=== PATIENT | female | born 1965 ===

== ENCOUNTER → 2020-04-27 11:35 | Outpatient (BNVA) | payer OTHER, SELFPAY | PROVIDERS: PCP Internal Medicine; Referring Provider Internal Medicine; Visit Provider Student in an Organized Health Care Education/Training Program | DX: M17.11 Unilateral primary osteoarthritis, right knee (principal) | CPT/HCPCS: 20610; 99212 ==

== ENCOUNTER 2020-11-17 12:04 | Outpatient (REF) | payer OTHER, SELFPAY ==
[2020-11-17 14:10] LABS: Alanine Aminotransferase 47 U/L (0-31); Albumin Level 4.4 g/dL (3.5-5.0); Alkaline Phosphatase 91 U/L (39-117); Anion Gap 13 (12-20); Aspartate Amino Transferase 41 U/L (5-31); Bilirubin Total 0.4 mg/dL (0.0-1.0); Blood Urea Nitrogen 14 mg/dL (9-16); Calcium 9.6 mg/dL (8.4-10.2); Carbon Dioxide 29 mmol/L (22-29); Chloride 104 mmol/L (96-108); Estimated Glomerular Filt Rate > 60; Glucose Random 107 mg/dL (60-115); Potassium 4.6 mmol/L (3.3-5.1); Sodium 141 mmol/L (135-145); Total Protein 7.4 g/dL (6.5-8.0)
== END 2020-11-17 12:05 | disposition home or self-care (01) ==
LOC: HO.LAB 12:04
PROVIDERS: PCP Internal Medicine; Referring Provider Internal Medicine; Visit Provider Student in an Organized Health Care Education/Training Program
DX: M17.11 Unilateral primary osteoarthritis, right knee (principal); M47.816 Spondylosis without myelopathy or radiculopathy, lumbar region; Z88.6 Allergy status to analgesic agent; Z88.0 Allergy status to penicillin; Z79.899 Other long term (current) drug therapy
CPT/HCPCS: 20610; 36415; 80053; 99212

== ENCOUNTER 2020-11-23 14:33 | Outpatient (REF) | payer OTHER, SELFPAY ==
--- NOTE | ~2020-11-23 | MR_ITS ---
EXAMINATION: MR KNEE WITHOUT CONTRAST, RIGHT CLINICAL INFORMATION: Primary osteoarthritis. COMPARISON: X-ray 12/23/2019. TECHNIQUE: MRI of the knee without contrast was performed using routine sequences on a high-field scanner. FINDINGS: MENISCI: Medial Meniscus: Degenerative signal in the body. No discrete tear is seen. Lateral Meniscus: Intact LIGAMENTS: Cruciate: Intact Collateral: Intact EXTENSOR MECHANISM: Intact. Quadriceps tendon insertional enthesopathy. ARTICULAR CARTILAGE/BONE: Patellofemoral Compartment: Scattered foci mild patellar cartilage fissuring. Focal cartilage heterogeneity in the medial trochlear. Medial Compartment: Cartilage fissuring of the lateral aspect of medial femoral condyle. Mild cartilage thinning of the tibia. Lateral Compartment: Cartilage thinning and fissuring in the posterior tibia. No fracture. JOINT FLUID AND BURSAE: Trace joint fluid. Small Ambrocio's cyst. MR/MR knee RT wo con IMPRESSION: 1. No discrete meniscal tear is seen. 2. Mild tricompartment arthritis. 3. Small Ambrocio's cyst.
== END 2020-11-23 14:34 | disposition home or self-care (01) ==
LOC: HO.MRI 14:33
PROVIDERS: Visit Provider Student in an Organized Health Care Education/Training Program
DX: M17.11 Unilateral primary osteoarthritis, right knee (principal)
CPT/HCPCS: 73721

== ENCOUNTER 2021-08-18 13:11 | Outpatient (REF) | payer OTHER, SELFPAY ==
[2021-08-22 19:46] LABS: HPV mRNA E6/E7 rflx Not Detected (Not Detected)
== END 2021-08-18 13:12 | disposition home or self-care (01) ==
LOC: HO.LAB 13:11
PROVIDERS: PCP Internal Medicine; Visit Provider Advanced Practice Midwife
DX: Z01.419 Encounter for gynecological examination (general) (routine) without abnormal findings (principal); Z11.51 Encounter for screening for human papillomavirus (HPV)
CPT/HCPCS: 87624; 88142

== ENCOUNTER 2021-09-30 14:48 | Outpatient (REF) | payer OTHER, SELFPAY ==
--- NOTE | ~2021-09-30 | MM_ITS ---
EXAMINATION: MM SCREENING DIGITAL BREAST TOMOSYNTHESIS, BILATERAL CLINICAL INFORMATION: Screening. Asymptomatic. The lifetime risk of breast cancer based on the Tyrer-Cuzick Model is 12%. COMPARISON: Mammography: 05/07/2017, 02/29/2016, 10/16/2013 TECHNIQUE: Digital breast tomosynthesis is performed in both the craniocaudal and mediolateral oblique views along with computer-aided detection (CAD). Synthesized 2D images are generated from the tomosynthesis. FINDINGS: There are scattered areas of fibroglandular density (ACR BI-RADS breast composition Category b). There are no significant masses, abnormal calcifications, or other abnormalities. Parenchymal pattern is similar to prior studies. There is no developing density or architectural abnormality. The axilla and skin contours are unremarkable. No significant changes. MM/MM tomosynthesis screening BI IMPRESSION: No mammographic evidence of malignancy. ASSESSMENT: BI-RADS 1: Negative RECOMMENDATION: Routine annual mammography screening. This patient's information was entered into a reminder system with a target due date for their next mammogram.
== END 2021-09-30 14:49 | disposition home or self-care (01) ==
LOC: HO.MAMMO 14:48
PROVIDERS: PCP Internal Medicine; Visit Provider Advanced Practice Midwife
DX: Z12.31 Encounter for screening mammogram for malignant neoplasm of breast (principal)
CPT/HCPCS: 77063; 77067

== ENCOUNTER 2022-01-05 10:28 | Outpatient (REF) | payer OTHER, SELFPAY ==
[2022-01-05 10:49] LABS: MANUAL DIFF FLAG NO
[2022-01-05 11:24] LABS: Appearance Urine HAZY; Color Urine YELLOW; Glucose Urine UA NEG (NEG); Leukocyte Esterase Urine NEG (NEG); Nitrite Urine NEG (NEG); PH 5.5 (5.0-8.0); Specific Gravity - Urine >= 1.030 (1.005-1.025); Urine Blood 2+ (NEG); Urine Ketones NEG (NEG); Urine Protein NEG (NEG-TRACE)
[2022-01-05 11:24] LABS: Basophils Absolute Auto 0.1 X10*3/uL (0.0-0.2); Basophils Percent Auto 0.5 % (0-2); Eosinophils Absolute Auto 0.3 X10*3/uL (0.0-0.4); Eosinophils Percent Auto 2.6 % (0-4); Hematocrit 38.1 % (37.0-47.0); Hemoglobin 12.4 g/dl (12.0-16.0); Imm Gran Abs Auto 0.04 X10*3/uL (0.00-0.03); Imm Gran Pct Auto 0.4 % (0.0-0.4); Lymphocytes Absolute Auto 3.5 X10*3/uL (1.2-4.9); Lymphocytes Percent Auto 36.7 % (20-40); Mean Corpuscular HGB Conc 32.5 g/dl (31.0-35.0); Mean Corpuscular Hemoglobin 28.9 pg (27.0-33.0); Mean Corpuscular Volume 88.8 fL (80.0-98.0); Mean Platelet Volume 9.2 fL (9.4-12.3); Monocytes Absolute Auto 0.9 X10*3/uL (0.1-1.2); Monocytes Percent Auto 9.6 % (2-11); Neutrophils Absolute Auto 4.8 x10*3/uL (2.0-8.3); Neutrophils Percent Auto 50.2 % (45-73); Platelet Count 331 X10*3/uL (160-400); Red Blood Count 4.29 X10*6/uL (4.20-5.50); Red Cell Distribution Width 12.9 % (11.0-16.0); White Blood Count 9.6 X10*3/uL (4.8-10.8)
[2022-01-05 11:48] LABS: Creatinine Urine 160.92 mg/dL; Microalbum/Creatinine Ratio Ur 6.8 ug/mg cr
[2022-01-05 11:49] LABS: Alanine Aminotransferase 20 U/L (0-31); Alkaline Phosphatase 82 U/L (39-117); Anion Gap 11 (12-20); Aspartate Amino Transferase 18 U/L (5-31); Bilirubin Total 0.2 mg/dL (0.0-1.0); Blood Urea Nitrogen 12 mg/dL (9-16); Calcium 9.2 mg/dL (8.4-10.2); Carbon Dioxide 25 mmol/L (22-29); Chloride 107 mmol/L (96-108); Cholesterol 298 mg/dL; Estimated Glomerular Filt Rate > 60; Glucose Random 108 mg/dL (60-115); HDL Cholesterol 38 mg/dL; LDL Cholesterol Calculated 239 mg/dl; Potassium 4.3 mmol/L (3.3-5.1); Sodium 139 mmol/L (135-145); Total Protein 7.1 g/dL (6.5-8.0); Triglycerides 109 mg/dL
[2022-01-05 11:52] LABS: Estimated Average Glucose 120 mg/dL; Hemoglobin A1C 135.8368 umol/L; Hemoglobin A1c % 5.8 %
[2022-01-05 11:58] LABS: Calcium Oxalate Crystals Urine 1+ /LPF; Mucus Urine 1+ /LPF; Squamous Epithelial Cell Urine 1+ /LPF; WBC Urine 0-2 /HPF (0-4)
[2022-01-05 12:11] LABS: Free T4 (Free Thyroxine) 0.93 ng/dL (0.71-1.85); Vitamin D 25-OH Total 26.3 ng/mL (>30)
[2022-01-05 12:46] LABS: Vitamin B12 680 pg/mL (200-900)
== END 2022-01-05 10:29 | disposition home or self-care (01) ==
LOC: HO.LAB 10:28
PROVIDERS: PCP Internal Medicine; Visit Provider Internal Medicine
DX: M17.11 Unilateral primary osteoarthritis, right knee (principal); M79.7 Fibromyalgia; E11.65 Type 2 diabetes mellitus with hyperglycemia; E78.00 Pure hypercholesterolemia, unspecified
CPT/HCPCS: 36415; 80053; 80061; 81001; 82043; 82306; 82607; 82746; 83036; 84439; 84443; 85025; 99212

== ENCOUNTER → 2022-03-20 13:48 | Outpatient (BNVA) | payer OTHER, SELFPAY | PROVIDERS: PCP Internal Medicine; Visit Provider Internal Medicine Rheumatology | DX: M17.0 Bilateral primary osteoarthritis of knee (principal); M79.7 Fibromyalgia | CPT/HCPCS: 20610; 99212 ==

== ENCOUNTER 2022-06-05 08:03 | Outpatient (REF) | payer OTHER, SELFPAY ==
--- NOTE | ~2022-06-05 | XR_ITS ---
EXAMINATION: XR CHEST CLINICAL INFORMATION: Chest pain COMPARISON: Previous chest x-ray February 2016 TECHNIQUE: 2 views of the chest were obtained. FINDINGS: The cardiac and mediastinal contours are stable. There is question of atelectasis or small infiltrate in the left upper lung. The lungs are otherwise clear. There is no pleural effusion or pneumothorax. There are degenerative changes of the spine. XR/XR chest 2V IMPRESSION: Question atelectasis or small infiltrate in the left upper lung.
[2022-06-05 09:19] LABS: Alanine Aminotransferase 12 U/L (0-31); Alkaline Phosphatase 84 U/L (39-117); Anion Gap 14 (12-20); Aspartate Amino Transferase 15 U/L (5-31); Bilirubin Total 0.4 mg/dL (0.0-1.0); Blood Urea Nitrogen 11 mg/dL (9-16); Calcium 9.4 mg/dL (8.4-10.2); Carbon Dioxide 29 mmol/L (22-29); Chloride 106 mmol/L (96-108); Cholesterol 267 mg/dL; Estimated Glomerular Filt Rate > 60; Glucose Random 101 mg/dL (60-115); HDL Cholesterol 39 mg/dL; LDL Cholesterol Calculated 201 mg/dl; Potassium 5.1 mmol/L (3.3-5.1); Sodium 144 mmol/L (135-145); Triglycerides 138 mg/dL
[2022-06-05 09:32] LABS: Appearance Urine Clear; Color Urine Yellow; Glucose Urine UA Negative (Negative); Leukocyte Esterase Urine Negative (Negative); Nitrite Urine Negative (Negative); RBC Urine >20 /HPF (0-2); Specific Gravity - Urine 1.025 (1.005-1.025); UMIC TRIGGER UA YES; Urine Blood Large (3+) (Negative); Urine Ketones Negative (Negative); Urine Protein Negative (Neg-Trace); WBC Urine 0-5 /HPF (0-5)
[2022-06-05 09:33] LABS: Estimated Average Glucose 123 mg/dL; Hemoglobin A1c % 5.9 %
[2022-06-05 09:33] LABS: Bacteria Urine 2+ (None Seen); Hyaline Casts Urine 0-2 /LPF (0-2)
== END 2022-06-05 08:04 | disposition home or self-care (01) ==
LOC: HO.LAB 08:03
PROVIDERS: PCP Internal Medicine; Visit Provider Internal Medicine
DX: E11.65 Type 2 diabetes mellitus with hyperglycemia (principal); M17.11 Unilateral primary osteoarthritis, right knee; R07.9 Chest pain, unspecified; E78.00 Pure hypercholesterolemia, unspecified
CPT/HCPCS: 36415; 71046; 80053; 80061; 81001; 83036

== ENCOUNTER → 2022-06-12 09:47 | Outpatient (REF) | payer OTHER, SELFPAY ==
--- NOTE | 2022-06-12 09:49 | CA_ITS ---
Acquisition Time: 2022-06-12 10:01:08 Total Exercise Time: 00:06:35 Test Indications: ASTHMA Medications: SEE CHART Protocol: VIANCA Max HR: 157 BPM 95% of Pred: 165 BPM Max BP: 158/078 mmHG Max Work Load: 7.8 METS Exercise stress test with exercise 6 min 35 sec of Vianca protocol, achieving 95% MPHR, 7.8 METs, with mild to moderate sob, no chest discomfort, without arrythmia, with normotensive response to exercise, without EKG changes meeting criteria for ischemia. In recovery her breathing quickly improved. Test reviewed with Dr Kraft Referred By: Susana Barber Overread By: GEOVANNY TELLEZ
== END ==
LOC: HO.CARD 09:47
PROVIDERS: Visit Provider Internal Medicine
DX: R07.9 Chest pain, unspecified (principal)
CPT/HCPCS: 93017

== ENCOUNTER 2023-05-09 09:39 | Outpatient (AMB) | payer OTHER, SELFPAY ==
--- NOTE | 2023-05-09 10:26 | MHC.OFFVIS ---
Intake Vital Signs 05/09/23 10:27 Height 4 ft 11 in Weight 132 lb 4.438 oz BMI 26.7 BP 118/82 Blood Pressure Location Lt brachial Position Sitting Pulse 88 Pulse Source Pulse Oximeter Temp 97.2 F Temp Source Skin Pulse Oximetry (%) 98 Oxygen Delivery Method Room Air Intake Visit Reasons: Knee pain Intake Note: Patient presents today c/o knee pain. Would like cortisone injection on both knees. Patient would like placard form filled out. Brought to office and will drop off herself. 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 She reports that the corticosteroid injections in her knees back in February were helpful for about 3 months. She wants to consider another set of injections today. She does not recall any side effects with the previous set of injections. She thinks there has been continued pain elsewhere involving the hands, shoulders, lower back, lateral hips, and feet. She remains on Cymbalta 60 mg daily, 3 or 4 Tylenol a day, gabapentin 400 mg at night, and tizanidine 4 mg at night if needed. She thinks there has been some swelling in the hands at times. The lumbar pain tends to radiate to the buttocks, more prominently so on the left. This has been a pattern for her before. [facility] Medical History (Updated 05/09/23 @ 10:51 by Antoine Carter MD) Generalized anxiety disorder Type 2 diabetes mellitus with hyperglycemia Vitamin D deficiency Renal calculi Hypercholesterolemia Migraine GERD (gastroesophageal reflux disease) Lumbar spondylosis Hemorrhoid Surgical History Carpal tunnel syndrome on right Hx of tubal ligation H/O hemorrhoidectomy History of esophagogastroduodenoscopy (EGD) Family History Maternal Aunt History of breast cancer Father Colon cancer Heart attack Brother Colon cancer Heart attack Social History (Reviewed 05/09/23 @ 10:27 by KASSIDY Segundo Housing: Apartment Alcohol intake: never Patient Tobacco Use Status: Never used Tobacco e-Cigarette/Vaping Use: Never Used Second Hand Smoke Exposure: Yes service: No Current occupational status: unemployed Current occupational exposures/hazards: No Sexual orientation: Straight/Heterosexual Cognitive needs: No Hearing needs: No Vision needs: Yes Review of Systems Const Details: Negative for appetite change, weight change, fever, chills, malaise and fatigue Eyes Details: Negative for vision change, dry eyes,headaches and dizziness Details: Negative for dysuria, hematuria, nocturia, decreased force/flow and genital discharge Skin/Breast Details: Negative for itching, rash, hives, Raynaud's symptoms, sun sensitivity, and skin cancer Neuro Details: Negative for epilepsy, palsy, stroke, changes in speech, tingling and weakness Psych Details: Negative for anxiety, depression and stress Endo Details: Negative for polyuria and polydypsia Donal/Lymph Details: Negative for excessive bruising or bleeding. Physical Exam Vital Signs: Last Vital Signs Temp 97.2 F 05/09/23 10:27 Pulse 88 05/09/23 10:27 BP 118/82 05/09/23 10:27 Pulse Ox 98 05/09/23 10:27 Oxygen Delivery Method Room Air 05/09/23 10:27 BMI result Body Mass Index 26.7 APPEARANCE: Patient in no acute distress EYES no redness, pupils equal and reactive to light, eyelids normal. No temporal artery tenderness, redness or swelling. EXTREMITIES: No edema, no calf tenderness, normal peripheral pulses. JOINT EXAM:?? Cervical Spine:.? Full range of motion without pain; mild cervical muscle tenderness. Thoracic Spine:.? No scoliosis.? No tenderness on palpation. Lumbar Spine:.? Alignment normal.? Lumbar pain with flexion at 60 degrees.? Slight lumbar muscle tenderness. Straight leg raising on the left causes some buttock pain at about 60 degrees. Normal reflexes and strength in the legs. Chest Wall:.? No tenderness, swelling, increased warmth or erythema. Hands:.? Normal pain-free range of motion.? There is some slight tenderness at the 1st 3 MCPs and the 2nd through 4th PIP is but I do not detect any bony or soft tissue swelling in those joints.? There is some mild tenderness without swelling at the base of the thumbs.? There is slight bony enlargement at the thumb IP in both hands and the right 3rd, left 2nd, and left 5th PIP joints. Similarly there is nontender bony enlargement at the right 2nd and 5th and left 2nd DIP joints. There is no thenar atrophy or sensory loss. Wrists:.? Normal pain-free range of motion with mild dorsal tenderness but no swelling, increased warmth or erythema. Elbows:. Normal pain-free range of motion with tenderness over the lateral epicondyles.? Over the joint spaces there is no tenderness, swelling, increased warmth or erythema. Shoulders:.?? Full range of motion without pain.? Mild anterior and trapezial tenderness.? No supraclavicular or axillary adenopathy, abductor weakness, swelling, increased warmth or erythema. Hips:.? Full range of motion with mild buttock pain at the extremes of rotation.? No groin pain with motion. Hip bursa:.? Mild trochanteric tenderness. Knees:.? Right:? Mild pain at the extremes of flexion extension with some mild medial compartment tenderness.? No effusion, redness or warmth.? Left:? Mild pain with extremes of flexion or extension. This is mostly felt in the medial compartment where she has mild tenderness but no effusion, soft tissue swelling, increased warmth or erythema.? Ankles:.? Normal pain-free range of motion with mild medial and lateral tenderness but no swelling, increased warmth or erythema. Feet:.? Normal pain-free range of motion with some instep and MTP tenderness.? No areas of swelling, increased warmth or erythema. Tender points:? Mild tenderness to digital palpation at the occiput, trapezius, second rib, lateral epicondyle, knees, greater trochanter and gluteal area bilaterally. ? Office Procedures Joint Injection/Drain Joint Injection/Drain Primary Site: right knee Secondary Site: right knee Injected: 80 mg of, Kenalog, with 3 mL of and 1% plain lidocaine Coding 47915 - Large joint Procedure code (CPT) selection complete Assessment & Plan Assessment & Plan (1) Fibromyalgia: Code(s): M79.7 - Fibromyalgia (2) Osteoarthritis of knees, bilateral: Code(s): M17.0 - Bilateral primary osteoarthritis of knee Plan Overall the patient still has features in findings consistent with fibromyalgia. There are some mild changes of osteoarthritis in the hands and in the knees. She did have a benefit with corticosteroid injections in the past and apparently no side effects so another set of injections today seems reasonable. With the patient's consent the right knee was prepped with ChloraPrep and alcohol. The skin was anesthetized with 2 cc of 1% lidocaine. The knee was then injected with 40 mg of triamcinolone and 1 cc of I % lidocaine. The patient tolerated the procedure with no immediate adverse effects. With the patient's consent the left knee was prepped with ChloraPrep and alcohol. The skin was anesthetized with 2 cc of 1% lidocaine. The knee was then injected with 40 mg of triamcinolone and 1 cc of I % lidocaine. The patient tolerated the procedure with no immediate adverse effects. She could come back in 5 months to get another set of injections for the knees if she thinks they are helpful. We will continue with her other medications as above. They do not seem to be sedating. She is still having trouble walking and uses a cane so we did provide her with a form for a handicap placard. Orders: Orders AMB Joint Injection/Aspiration Today M17.0 - Bilateral primary osteoarthritis of knee Coding Level of Care Code Est Pt Level 3 (62258) Diagnoses Fibromyalgia M79.7 Osteoarthritis of knees, bilateral M17.0 CPT Codes Coding - 97435 Large joint: 62228 - Large joint ([id number])
[2023-05-09 10:27] VITALS: BP 118/82; PULSE 88; TEMP 36.2; O2SAT 98; BMI 26.7
== END 2023-05-09 11:11 | disposition home or self-care (01) ==
PROVIDERS: PCP Internal Medicine; Visit Provider Internal Medicine Rheumatology
DX: M79.7 Fibromyalgia (principal); M17.0 Bilateral primary osteoarthritis of knee
CPT/HCPCS: 20610; 99213

== ENCOUNTER → 2023-05-09 09:39 | Outpatient (BNVA) | payer OTHER, SELFPAY | PROVIDERS: PCP Internal Medicine; Visit Provider Internal Medicine Rheumatology | DX: M17.0 Bilateral primary osteoarthritis of knee (principal); M79.7 Fibromyalgia | CPT/HCPCS: 20610; 99212 ==

== ENCOUNTER 2023-10-01 17:02 | Outpatient (AMB) | payer OTHER, SELFPAY ==
--- NOTE | 2023-10-01 17:17 | A.OFFPC_ITS ---
Vital Signs 10/01/23 17:20 Height 4 ft 11 in Weight 62.596 kg BMI 27.9 BP 126/82 Blood Pressure Location Lt brachial Position Sitting Intake Visit Reasons: phy Intake Note: Patient here for a physical exam Sheet [employer] Required: No Accompanied by: Self / Same As Patient Allergies aspirin [Aspirin] Allergy (Severe, Verified 10/01/23 17:21) SWELLING/RASH, Red bumps on face, redness Penicillins Allergy (Intermediate, Verified 10/01/23 17:21) RASH Medication List - Last Reconciled 10/01/23 by Susana Barber MD albuterol sulfate 90 mcg/actuation 2 puffs inhalation Q6H PRN albuterol sulfate 2.5 mg (3 mL) inhalation Q4-6H PRN budesonide-formoterol 160-4.5 mcg/actuation (Symbicort) 2 puffs inhalation BID 30 days duloxetine (Cymbalta) 60 mg PO DAILY gabapentin 400 mg PO BEDTIME meclizine 25 mg PO BID PRN metformin 500 mg PO DAILY [Nebulizer As directed] pantoprazole 40 mg PO DAILY Tobacco use date assessed: 10/01/23 Dental Screening Dental Screen Date: 10/01/23 Did you have a dental visit in the last 12 months?: No Did you have a dental problem in the last 6 months where you did not have access to dental care?: No Was dental information given to patient?: Patient has dentist HPI phy HPI Details 58-year-old overweight female with contr olled diabetes mellitus hypercholesterolemia GERD asthma generalized anxiety disorder coming in for physical exam last seen in May 2022. Patient's mammogram is due colonoscopy done in January 2019. Patient April 2023 seen by Rheumatology for the knee pain did have an injection on the right knee patient is diagnosis of fibromyalgia also. Since patient was seen in 2021 chest pain stress test done negative results. vertigo has passed out before last time 2 months. R hearing is poor R shoulder pain and has a schedule to see rheuma 10/09/2023 . have a hard time sleeping also and asking for med .migraine med need med also [facility] Medical History (Updated 10/01/23 @ 18:10 by Susana Barber MD) Generalized anxiety disorder Type 2 diabetes mellitus with hyperglycemia Vitamin D deficiency Renal calculi Hypercholesterolemia Migraine GERD (gastroesophageal reflux disease) Lumbar spondylosis Hemorrhoid Surgical History Carpal tunnel syndrome on right Hx of tubal ligation H/O hemorrhoidectomy History of esophagogastroduodenoscopy (EGD) Family History Maternal Aunt History of breast cancer Father Colon cancer Heart attack Brother Colon cancer Heart attack Social History Housing: Apartment Alcohol intake: never Patient Tobacco Use Status: Never used Tobacco e-Cigarette/Vaping Use: Never Used Second Hand Smoke Exposure: Yes service: No Current occupational status: unemployed Current occupational exposures/hazards: No Sexual orientation: Straight/Heterosexual Cognitive needs: No Hearing needs: No Vision needs: Yes Questionnaire PHQ-9 Over the last 2 weeks, how often have you been bothered by any of the following problems? 1. Little interest or pleasure in doing things: not at all 2. Feeling down, depressed, or hopeless: several days 3. Trouble falling or staying asleep, or sleeping too much: several days 4. Feeling tired or having little energy: several days 5. Poor appetite or overeating: not at all 6. Feeling bad about yourself - or that you are a failure or have let yourself or your family down: not at all 7. Trouble concentrating on things, such as reading the newspaper or watching television: not at all 8. Moving or speaking so slowly that other people could have noticed. Or the opposite - being so fidgety or restless that you have been moving around a lot more than usual: not at all 9. Thoughts that you would be better off or of hurting yourself in some way: not at all Total score: 3 Source: Developed by Drs. Woodrow Vera, Noemi Carrera, Simba Urias and colleagues, with an educational benoit from [employer]. Thrive Questionnaire Date Thrive assessed: 10/01/23 I am a: Patient What is your living situation today?: I have a steady place to live Within the past 12 months, did the food you bought not last and you didn't have the money to get more?: Never true Within the past 12 months, did you worry whether your food would run out before you got money to buy more?: Never true Do you have trouble paying for medicines?: No Do you have trouble getting transportation to medical appointments?: No Do you have trouble paying your heating and electricity bill?: No Do you have trouble taking care of your child, family member or friend?: No Do you have trouble with day-to-day activities such as bathing, preparing meals, shopping, managing finances, etc.?: No Are you currently unemployed and looking for a job?: No Are you interested in more education?: No Please select the resources that you would like help with: None Currently or been in a relationship where the following occur: no concerns re ported THRIVE Score: 0 AUDIT C Alcohol Use Questionnaire (AUDIT-C) 1. How often do you have a drink containing alcohol?: Never Total Score: 0 JOAN-7 AMB Questionnaire JOAN-7 Date JOAN - 7 assessed: 10/01/23 Feeling nervous, anxious, or on edge: 1 = Several days Not being able to stop or control worryin = Not at all Worrying too much about different things: 0 = Not at all Trouble relaxin = Not at all Being so restless that it is hard to sit still: 0 = Not at all Becoming easily annoyed or irritable: 0 = Not at all Feeling afraid as if something awful might happen: 0 = Not at all Total JOAN-7 score (0-4 normal; 5-9 mild; 10-14 moderate; 15-21 severe): 1 Source: Developed by Drs. Woodrow Vera, Noemi Carrera, Simba Urias and colleagues, with an educational benoit from [employer]. Review of Systems Const Denies poor appetite and Denies weakness Eyes Denies no additional complaints ENT Reports Normal hearing present, Denies dizziness, Denies nasal congestion, Denies tinnitus and Denies sore throat Card Denies chest pain, Denies syncope, Denies rapid heart rate and Denies dyspnea Resp Denies cough and Denies dyspnea GI Denies change in stool character, Reports constipation, Denies diarrhea, Denies nausea and Denies vomiting Denies urinary frequency, Denies difficulty voiding and Denies dysuria Neuro Reports Normal hearing present, Denies confusion, Denies dizziness, Denies syncope and Denies weakness Psych Denies confusion Physical exam (Primary Care) Vital Signs: Last Vital Signs BP 126/82 10/01/23 17:20 BMI result Body Mass Index 27.9 Tobacco/Smoking Status: Tobacco use Status Tobacco use date assessed 10/01/23 10/01/23 17:27 Patient Tobacco Use Status Never used Tobacco 10/01/23 17:19 e-Cigarette/Vaping Use Never Used 10/01/23 17:19 PHQ-9: PHQ-9 Score PHQ-9: Total score 3 10/01/23 17:50 Thrive Assessment: Date of Thrive Assessment Date Thrive assessed 10/01/23 10/01/23 17:27 Currently or been in a relationship where the following occur: no concerns reported Const General: No confusion Orientation/consciousness: No confusion HENMT Head: Yes normocephalic Ears: external ears normal and TM's normal bilaterally Face and sinus: Yes normal facial exam Mouth: moist mucous membranes Throat: Yes tonsils normal Eyes Conjunctivae: conjunctivae normal Pupils: Equal, round and reactive pupils present and Pupil accommodation reflex normal Direct Ophthalmoscopy: normal light reflex Neck Neck: No lymphadenopathy Thyroid: Thyroid normal Chest Chest palpation & inspection: normal inspection of the chest Resp Effort & Inspection: normal respiratory effort and no audible wheezes Auscultation: clear to auscultation bilaterally, no crackles, no wheezes and lung sounds not diminished Cardio Rate: regular rate Rhythm: regular rhythm Peripheral pulses: radial pulses present and dorsalis pedis present GI Other: referral for colon test Palpation (GI): no masses Auscultation: normal bowel sounds and normoactive bowel sounds Rectal Exam - Female: deferred Skin Other: pedal pulse and pin prick N General skin exam: no rashes or lesions noted Rashes: no rashes Neuro General: No confusion Cranial nerves: Yes Equal, round and reactive pupils present and Yes Normal hearing present Cognition (Neuro): normal cognition Gait exam (Neuro): Normal gait present Motor exam (neuro): 5/5 motor strength present throughout Deep tendon reflexes (DTR's): Right brachioradialis reflex intensity grade: 2+, Left brachioradialis reflex intensity grade: 2+, Right patellar reflex intensity grade: 2+ and Left patellar reflex intensity grade: 2+ Extrem General: No edema Results AMB Hemoglobin A1c AMB Hemoglobin A1c 6.0 % Last Edit by BALBIR Cristobal on 10/01/23 17:2 7 Immunizations tetanus-diphtheria toxoids-Td 2 Lf unit-2 Lf unit/0.5 mL IM suspension Performing Provider: Susana Barber MD Performing Location: [facility] Administered by: BALBIR Cristobal on 10/01/23 18:19 Dose Route Admin Location Dispensed Lot Number Expiration Date NDC [employer] 0.5 mL IM Left Deltoid 0.5 mL [id number] 09/01/24 [address]-2 [employer] VIS Given Date VIS Provided VIS Publication Date 10/01/23 Single Vaccine 21 Eligibility Eligibility Date Funding Source Not VFC Eligible 10/01/23 State funds Results Reviewed Results Reviewed: Laboratory Last Values Hgb A1c (Clinic) 6.0 % (4.0-6.0) 10/01/23 17:17 Assessment and Plan Assessment & Plan (1) Annual physical exam: Code(s): Z00.00 - Encounter for general adult medical examination without abnormal findings (2) Type 2 diabetes mellitus with hyperglycemia: Comment: Dr. Gamino Code(s): E11.65 - Type 2 diabetes mellitus with hyperglycemia Plan: Decrease the amount of carbohydrate intake, pasta, bread, rice and potatoes are all sugar and that is aside from all the sweet stuff, remember that fruits are good but they are Sweet also. Hemoglobin A1c goal of less than 6.5. Patient on metformin 500 mg once a day (3) Hypercholesterolemia: Code(s): E78.00 - Pure hypercholesterolemia, unspecified Plan: Cholesterol LDL goal of less than 100 and triglyceride of less than 150 concern that the 2021 blood work shows an elevated LDL. Will need blood work (4) Asthma: Code(s): J45.909 - Unspecified asthma, uncomplicated Plan: Continue with inhaler as needed has Symbicort as a controller rinse mouth after using S. (5) Primary osteoarthritis of right knee: Comment: Some meniscal degenerative change seen on MRI, 2020 Code(s): M17.11 - Unilateral primary osteoarthritis, right knee Plan: 2022 had injection of the right knee. (6) GERD (gastroesophageal reflux disease): Code(s): K21.9 - Gastro-esophageal reflux disease without esophagitis Plan: Avoid the foods that causes that usually spicy foods, tomato products, juices, coffee, soda and foods that your sensitive to. After eating do not lie down, allow 3-4 hours before in lie down. And keep the head of bed above 30 degrees t o avoid the acid from going up. (7) Generalized anxiety disorder: Comment: decline counselling 10/2021 [facility] Code(s): F41.1 - Generalized anxiety disorder Plan: Continue with Cymbalta. Patient has seen Rheumatology diagnosis of fibromyalgia (8) Colon cancer screening: Code(s): Z12.11 - Encounter for screening for malignant neoplasm of colon (9) Fibromyalgia: Code(s): M79.7 - Fibromyalgia (10) Migraine: Code(s): G43.909 - Migraine, unspecified, not intractable, without status migrainosus (11) Bicipital tendinitis of right shoulder: Code(s): M75.21 - Bicipital tendinitis, right shoulder Plan: will be seeing rheumatology Orders: Orders Complete Blood Count Auto Diff Today E11.65 - Type 2 diabetes mellitus with hyperglycemia Free T4 (Free Thyroxine) Today E11.65 - Type 2 diabetes mellitus with hyperglycemia Thyroid Stimulating Hormone Today E11.65 - Type 2 diabetes mellitus with hyperglycemia Lipid Panel Today E11.65 - Type 2 diabetes mellitus with hyperglycemia, E78.00 - Pure hypercholesterolemia, unspecified Microalbumin, Random (w Creat) Today E11.65 - Type 2 diabetes mellitus with hyperglycemia Td State Immunization Today Z23 - Encounter for immunization AMB Hemoglobin A1c Today E11.65 - Type 2 diabetes mellitus with hyperglycemia Comprehensive Met. Panel Today E11.65 - Type 2 diabetes mellitus with hyperglycemia Vitamin B12 and Folate Today E11.65 - Type 2 diabetes mellitus with hyperglycemia Creatinine Urine Today E11.65 - Type 2 diabetes mellitus with hyperglycemia Vitamin D 25-OH Total Today E11.65 - Type 2 diabetes mellitus with hyperglycemia Referrals Gastroenterology Referral K21.9 - Gastro-esophageal reflux disease without esophagitis, Z12.11 - Encounter for screening for malignant neoplasm of colon Medications: New sumatriptan succinate (Imitrex) 100 mg PO .QD PRN 14 tabs 4RF migraine headache G43.909 - Migraine, unspecified, not intractable, without status migrainosus amitriptyline 10 mg PO BEDTIME 30 tabs 3RF M79.7 - Fibromyalgia Refilled duloxetine (Cymbalta) 60 mg PO DAILY 90 caps 1RF M79.7 - Fibromyalgia Coding Level of Care Code Est Pt Prev Care 40-64y([id number]) Diagnoses Annual physical exam Z00.00 Type 2 diabetes mellitus with hyperglycemia E11.65 Hypercholesterolemia E78.00 Asthma J45.909 Primary osteoarthritis of right knee M17.11 GERD (gastroesophageal reflux disease) K21.9 Generalized anxiety disorder F41.1 Colon cancer screening Z12.11 Fibromyalgia M79.7 Migraine G43.909 Bicipital tendinitis of right shoulder M75.21
[2023-10-01 17:20] VITALS: BP 126/82; BMI 27.9
== END 2023-10-01 18:21 | disposition home or self-care (01) ==
PROVIDERS: PCP Internal Medicine; Visit Provider Internal Medicine
DX: Z00.00 Encounter for general adult medical examination without abnormal findings (principal); E11.65 Type 2 diabetes mellitus with hyperglycemia; E78.00 Pure hypercholesterolemia, unspecified; Z23 Encounter for immunization; J45.909 Unspecified asthma, uncomplicated; M17.11 Unilateral primary osteoarthritis, right knee; K21.9 Gastro-esophageal reflux disease without esophagitis; F41.1 Generalized anxiety disorder; Z12.11 Encounter for screening for malignant neoplasm of colon; M79.7 Fibromyalgia; G43.909 Migraine, unspecified, not intractable, without status migrainosus; M75.21 Bicipital tendinitis, right shoulder
CPT/HCPCS: 83036; 90471; 90714; 99396

== ENCOUNTER 2023-10-09 13:32 | Outpatient (AMB) | payer OTHER, SELFPAY ==
--- NOTE | 2023-10-09 13:45 | MHC.OFFVIS ---
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 Allergies aspirin [Aspirin] Allergy (Severe, Verified 10/09/23 13:47) SWELLING/RASH, Red bumps on face, redness Penicillins Allergy (Intermediate, Verified 10/09/23 13:47) RASH Medication List - Last Reconciled 10/09/23 by Suma Osborne RN albuterol sulfate 90 mcg/actuation 2 puffs inhalation Q6H PRN albuterol sulfate 2.5 mg (3 mL) inhalation Q4-6H PRN amitriptyline 10 mg PO BEDTIME budesonide-formoterol 160-4.5 mcg/actuation (Symbicort) 2 puffs inhalation BID 30 days duloxetine (Cymbalta) 60 mg PO DAILY gabapentin 400 mg PO BEDTIME meclizine 25 mg PO BID PRN metformin 500 mg PO DAILY [Nebulizer As directed] pantoprazole 40 mg PO DAILY sumatriptan succinate (Imitrex) 100 mg PO .QD PRN HPI HPI Comments History of Present Illness Details Ms. Ndiaye 58-year-old female returns for evaluation of her fibromyalgia and osteoarthritis. She reports that the corticosteroid injections in her knees back in April 2023 were helpful for about 3 months. She wants to consider another set of injections today. She does not recall any side effects with the previous set of injections. She thinks there has been continued pain elsewhere involving the hands, shoulders, lower back, lateral hips, and feet. She remains on Cymbalta 60 mg daily, 3 or 4 Tylenol a day, gabapentin 400 mg at night, and tizanidine 4 mg at night if needed. She thinks there has been some swelling in the hands at times. The lumbar pain tends to radiate to the buttocks, more prominently so on the left. This has been a pattern for her before. [facility] Medical History (Updated 10/11/23 @ 17:20 by DEE DEE Dawson) Swelling of both knees Generalized anxiety disorder Type 2 diabetes mellitus with hyperglycemia Vitamin D deficiency Renal calculi Hypercholesterolemia Migraine GERD (gastroesophageal reflux disease) Lumbar spondylosis Hemorrhoid Surgical History Carpal tunnel syndrome on right Hx of tubal ligation H/O hemorrhoidectomy History of esophagogastroduodenoscopy (EGD) Family History Maternal Aunt History of breast cancer Father Colon cancer Heart attack Brother Colon cancer Heart attack Social History Housing: Apartment Alcohol intake: never Patient Tobacco Use Status: Never used Tobacco e-Cigarette/Vaping Use: Never Used Second Hand Smoke Exposure: Yes service: No Current occupational status: unemployed Current occupational exposures/hazards: No Sexual orientation: Straight/Heterosexual Cognitive needs: No Hearing needs: No Vision needs: Yes Physical Exam Vital Signs: Last Vital Signs Temp 97.8 F 10/09/23 13:46 Pulse 78 10/09/23 13:46 Resp 15 10/09/23 13:46 BP 118/72 10/09/23 13:46 Pulse Ox 98 10/09/23 13:46 Oxygen Delivery Method Room Air 10/09/23 13:46 BMI result Body Mass Index 29.7 APPEARANCE: Patient in no acute distress EYES no redness, No temporal artery tenderness, redness or swelling. HEART:? Regular rhythm, S1-S2 heard, no murmurs, rubs or gallops. LUNG:? Clear to percussion and auscultation EXTREMITIES: No edema, no calf tenderness, normal peripheral pulses. JOINT EXAM:?? Cervical Spine:.? Full range of motion without pain; mild cervical muscle tenderness. Thoracic Spine:.? No scoliosis.? No tenderness on palpation. Lumbar Spine:.? Alignment normal.? Lumbar pain with flexion at 60 degrees.? Slight lumbar muscle tenderness. Straight leg raising on the left causes some buttock pain at about 60 degrees. Normal reflexes and strength in the legs. Chest Wall:.? No tenderness, swelling, increased warmth or erythema. Hands:.? Normal pain-free range of motion.? There is some slight tenderness at the 1st 3 MCPs and the 2nd through 4th PIP is but I do not detect any bony or soft tissue swelling in those joints.? There is some mild tenderness without swelling at the base of the thumbs.? There is slight bony enlargement at the thumb IP in both hands and the right 3rd, left 2nd, and left 5th PIP joints. Similarly there is nontender bony enlargement at the right 2nd and 5th and left 2nd DIP joints. There is no thenar atrophy or sensory loss. Wrists:.? Normal pain-free range of motion with mild dorsal tenderness but no swelling, increased warmth or erythema. Elbows:. Normal pain-free range of motion with tenderness over the lateral epicondyles.? Over the joint spaces there is no tenderness, swelling, increased warmth or erythema. Shoulders:.?? Full range of motion without pain.? Mild anterior and trapezial tenderness.? No supraclavicular or axillary adenopathy, abductor weakness, swelling, increased warmth or erythema. Hips:.? Full range of motion with mild buttock pain at the extremes of rotation.? No groin pain with motion. Hip bursa:.? Mild trochanteric tenderness. Knees:.? Right:? Mild pain at the extremes of flexion extension with some mild medial compartment tenderness.? Mild joint swelling, but no redness or warmth.? Left:? Mild pain with extremes of flexion or extension. This is mostly felt in the medial compartment where she has mild tenderness with some joint swelling but no increased warmth or erythema.? Ankles:.? Normal pain-free range of motion with mild medial and lateral tenderness but no swelling, increased warmth or erythema. Feet:.? Normal pain-free range of motion with some instep and MTP tenderness.? No areas of swelling, increased warmth or erythema. Tender points:? Mild tenderness to digital palpation at the occiput, trapezius, second rib, lateral epicondyle, knees, greater trochanter and gluteal area bilaterally. ? Office Procedures Joint Injection/Drain Joint Injection/Drain Details: Injection to both knees. 2ml of Lidocaine 1% and 40mg ok knealog Primary Site: right knee Secondary Site: left knee Prep: site was prepped using aseptic technique Injected: 40 mg of, Kenalog and 1% plain lidocaine Approach Used: lateral parapatellar Procedure: The patient tolerated the procedure well and but had some pain with the injection Coding 09509 - Large joint Procedure code (CPT) selection complete Results Reviewed Results Reviewed: Laboratory Tests 12/23/19 12/23/19 12/23/19 14:26 14:26 14:26 Hgb 13.7 ESR 27 H Creatinine Hgb A1c (Clinic) C-Reactive Protein 0.42 Cycl Citrul Peptide IgG 12/23/19 10/25/21 01/05/22 14:26 12:56 10:47 Hgb 12.4 ESR Creatinine Hgb A1c (Clinic) 6.0 C-Reactive Protein Cycl Citrul Peptide IgG <16 01/05/22 10:47 Hgb ESR Creatinine 0.70 Hgb A1c (Clinic) C-Reactive Protein Cycl Citrul Peptide IgG Patient: Tania Ndiaye MR#: [id number] : 1965 Acct:[id number] Age/Sex: 55 / F Ordering Physician: Lucia Coto MD Date of Service: 11/23/20 Procedure(s): MR knee RT wo con Accession Number(s): [id number] cc: Lucia Coto MD~ EXAMINATION: MR KNEE WITHOUT CONTRAST, RIGHT CLINICAL INFORMATION: Primary osteoarthritis. COMPARISON: X-ray 12/23/2019. TECHNIQUE: MRI of the knee without contrast was performed using routine sequences on a high-field scanner. FINDINGS: MENISCI:? Medial Meniscus: Degenerative signal in the body. No discrete tear is seen. Lateral Meniscus: Intact LIGAMENTS:? Cruciate: Intact Collateral: Intact EXTENSOR MECHANISM: Intact. Quadriceps tendon insertional enthesopathy. ARTICULAR CARTILAGE/BONE: ? Patellofemoral Compartment: Scattered foci mild patellar cartilage fissuring. Focal cartilage heterogeneity in the medial trochlear. Medial Compartment: Cartilage fissuring of the lateral aspect of medial femoral condyle. Mild cartilage thinning of the tibia. Lateral Compartment: Cartilage thinning and fissuring in the posterior tibia. No fracture. JOINT FLUID AND BURSAE: Trace joint fluid. Small Ambrocio's cyst. MR/MR knee RT wo con IMPRESSION: 1. No discrete meniscal tear is seen. ? 2. Mild tricompartment arthritis. ? 3. Small Ambrocio's cyst. Dictated By: JOSE ANTONIO DURAN MD Assessment & Plan Assessment & Plan (1) Fibromyalgia: Code(s): M79.7 - Fibromyalgia (2) Osteoarthritis of knees, bilateral: Code(s): M17.0 - Bilateral primary osteoarthritis of knee Qualifiers: Osteoarthritis type: primary Qualified Code(s): M17.0 - Bilateral primary osteoarthritis of knee (3) Swelling of both knees: Code(s): M25.461 - Effusion, right knee; M25.462 - Effusion, left knee Plan # knee OA/knee swelling The patient has been having chronic knee pain and swelling whereby she has had to have joint injections what appears to be consistently every 3 months to be functional. She also complains of diffuse pain across her MCP and PIP joints. I will obtain updated labs to assess inflammation and whether an autoimmune process is active. She does walk with a cane which I think is a bit bit extreme for her age and given the minimal osteoarthritis that is indicated on imaging. Therefore 1 wonders if her symptoms are caused by an inflammatory arthritis and also due to the consistent bilateral presentation of the swelling and pain. She has had an MRI done in the past that did not document severe arthritis. There is also some mild changes of osteoarthritis in the hands. She did have a benefit with corticosteroid injections in the past and apparently no side effects so another set of injections today seems reasonable to help her function. I will also give her a course of prednisone and see her in 5 weeks to reassess for improvement to her hands and knees. #Fibromyalgia: She does have feature in findings consistent with fibromyalgia. We will continue with her other medications as above. They do not seem to be sedating. She is still having trouble walking and uses a cane so we did provide her with a form for a handicap placard. Orders: Orders Anti Extractable Nuclear Ag 10/10/23 M25.461 - Effusion, right knee, M25.462 - Effusion, left knee, M75.21 - Bicipital tendinitis, right shoulder C Reactive Protein 10/10/23 M25.461 - Effusion, right knee, M25.462 - Effusion, left knee, M75.21 - Bicipital tendinitis, right shoulder Creatine Kinase Total 10/10/23 M25.461 - Effusion, right knee, M25.462 - Effusion, left knee, M75.21 - Bicipital tendinitis, right shoulder Immunoglobulins,IgG IgA IgM 10/10/23 M25.461 - Effusion, right knee, M25.462 - Effusion, left knee, M75.21 - Bicipital tendinitis, right shoulder Protein Electrophoresis, Serum 10/10/23 M25.461 - Effusion, right knee, M25.462 - Effusion, left knee, M75.21 - Bicipital tendinitis, right shoulder T Spot TB 10/10/23 M25.461 - Effusion, right knee, M25.462 - Effusion, left knee, M75.21 - Bicipital tendinitis, right shoulder Hepatitis A,B,C Profile 10/10/23 M25.461 - Effusion, right knee, M25.462 - Effusion, left knee, M75.21 - Bicipital tendinitis, right shoulder TARIK Reflex Titer and Pattern 10/10/23 M25.461 - Effusion, right knee, M25.462 - Effusion, left knee, M75.21 - Bicipital tendinitis, right shoulder Complete Blood Count Auto Diff 10/10/23 M25.461 - Effusion, right knee, M25.462 - Effusion, left knee, M75.21 - Bicipital tendinitis, right shoulder Comprehensive Met. Panel 10/10/23 M25.461 - Effusion, right knee, M25.462 - Effusion, left knee, M75.21 - Bicipital tendinitis, right shoulder Erythrocyte Sedimentation Rate 10/10/23 M25.461 - Effusion, right knee, M25.462 - Effusion, left knee, M75.21 - Bicipital tendinitis, right shoulder Immunofixation Pnl, Serum 10/10/23 M25.461 - Effusion, right knee, M25.462 - Effusion, left knee, M75.21 - Bicipital tendinitis, right shoulder Uric Acid 10/10/23 M25.461 - Effusion, right knee, M25.462 - Effusion, left knee, M75.21 - Bicipital tendinitis, right shoulder Medications: New prednisone 3 tablets per day x 7 days 2 tablets per day x 7 days 1 tablet per day x 7 days 42 tabs 0RF M25.461 - Effusion, right knee, M25.462 - Effusion, left knee Coding Level of Care Code Est Pt Level 4 (27816) Diagnoses Fibromyalgia M79.7 Primary osteoarthritis of both knees M17.0 Osteoarthritis type: primary Swelling of both knees M25.461; M25.462 CPT Codes Coding - 58400 Large joint: 62669 - Large joint ([id number])
[2023-10-09 13:46] VITALS: BP 118/72; PULSE 78; RESP 15; TEMP 36.6; O2SAT 98; BMI 29.7
== END 2023-10-09 14:44 | disposition home or self-care (01) ==
PROVIDERS: PCP Internal Medicine; Visit Provider Nurse Practitioner Family
DX: M25.462 Effusion, left knee (principal); M25.461 Effusion, right knee; M79.7 Fibromyalgia
CPT/HCPCS: 20610; 99214

== ENCOUNTER → 2023-10-09 13:32 | Outpatient (BNVA) | payer OTHER, SELFPAY | PROVIDERS: PCP Internal Medicine; Visit Provider Nurse Practitioner Family | DX: M17.0 Bilateral primary osteoarthritis of knee (principal); M25.461 Effusion, right knee; M25.462 Effusion, left knee; M79.7 Fibromyalgia | CPT/HCPCS: 20610; 99212 ==

== ENCOUNTER 2023-10-10 13:28 | Outpatient (REF) | payer OTHER, SELFPAY ==
[2023-10-10 13:53] LABS: MANUAL DIFF FLAG NO
[2023-10-10 14:07] LABS: Basophils Absolute Auto 0.1 X10*3/uL (0.0-0.2); Basophils Percent Auto 0.5 % (0-2); Eosinophils Absolute Auto 0.1 X10*3/uL (0.0-0.4); Eosinophils Percent Auto 0.6 % (0-4); Hematocrit 42.4 % (37.0-47.0); Hemoglobin 14.2 g/dl (12.0-16.0); Imm Gran Abs Auto 0.04 X10*3/uL (0.00-0.03); Imm Gran Pct Auto 0.3 % (0.0-0.4); Lymphocytes Absolute Auto 3.6 X10*3/uL (1.2-4.9); Lymphocytes Percent Auto 29.2 % (20-40); Mean Corpuscular HGB Conc 33.5 g/dl (31.0-35.0); Mean Corpuscular Hemoglobin 29.5 pg (27.0-33.0); Mean Platelet Volume 9.2 fL (9.4-12.3); Monocytes Absolute Auto 0.8 X10*3/uL (0.1-1.2); Monocytes Percent Auto 6.1 % (2-11); Neutrophils Absolute Auto 7.8 x10*3/uL (2.0-8.3); Neutrophils Percent Auto 63.3 % (45-73); Platelet Count 354 X10*3/uL (160-400); Red Blood Count 4.82 X10*6/uL (4.20-5.50); White Blood Count 12.4 X10*3/uL (4.8-10.8)
[2023-10-10 14:41] LABS: Alanine Aminotransferase 14 U/L (0-31); Albumin Level 4.5 g/dL (3.5-5.0); Alkaline Phosphatase 99 U/L (39-117); Anion Gap 10 (12-20); Aspartate Amino Transferase 18 U/L (5-31); Bilirubin Total 0.4 mg/dL (0.0-1.0); Blood Urea Nitrogen 11 mg/dL (9-16); Calcium 9.8 mg/dL (8.4-10.2); Carbon Dioxide 28 mmol/L (22-29); Chloride 106 mmol/L (96-108); Estimated Glomerular Filt Rate > 60; Glucose Random 112 mg/dL (60-115); Sodium 140 mmol/L (135-145); Total Protein 8.3 g/dL (6.5-8.0)
[2023-10-10 14:50] LABS: Erythrocyte Sedimentation Rate 39 MM/HR (0-20)
[2023-10-10 14:54] LABS: Alanine Aminotransferase 13 U/L (0-31); Albumin Level 4.3 g/dL (3.5-5.0); Alkaline Phosphatase 98 U/L (39-117); Anion Gap 10 (12-20); Aspartate Amino Transferase 18 U/L (5-31); Bilirubin Total 0.4 mg/dL (0.0-1.0); Blood Urea Nitrogen 11 mg/dL (9-16); C Reactive Protein 0.28 mg/dL (< or = 0.50); Calcium 9.8 mg/dL (8.4-10.2); Carbon Dioxide 28 mmol/L (22-29); Chloride 106 mmol/L (96-108); Cholesterol 325 mg/dL (<200); Estimated Glomerular Filt Rate > 60; Glucose Random 112 mg/dL (60-115); HDL Cholesterol 46 mg/dL (>40); LDL Cholesterol Calculated 247 mg/dL (<100); Potassium 3.9 mmol/L (3.3-5.1); Sodium 140 mmol/L (135-145); Total Protein 8.3 g/dL (6.5-8.0); Triglycerides 161 mg/dL (<150)
[2023-10-10 15:01] LABS: Free T4 (Free Thyroxine) 0.83 ng/dL (0.71-1.85); Thyroid Stimulating Hormone 1.15 uIU/mL (0.32-4.0)
[2023-10-10 15:08] LABS: Creatinine Urine 115.04 mg/dL; Microalbum/Creatinine Ratio Ur 19.1 ug/mg cr (<30)
[2023-10-10 15:59] LABS: Folate 12.3 ng/mL (> or = 4.0); Vitamin B12 443 pg/mL (200-900)
[2023-10-11 08:08] LABS: HBsAGNum1 0.33 S/CO (0.00-0.99); Hepatitis A Antibody IgM 0.35 Index (0-0.79); Hepatitis B Core Antibody Nonreactive (Nonreactive); Hepatitis B Surface Antigen Negative (Negative); ~HepC Num1 0.14 S/CO (0.00-0.79); ~Hepatitis A Antibody IgM Nonreactive (Nonreactive); ~Hepatitis B Surface Antibody NONREACTIVE (Nonreactive); ~Hepatitis C Antibody Nonreactive (Nonreactive)
[2023-10-12 13:43] LABS: IgA 411 mg/dL (47-310); IgG 1088 mg/dL (600-1640); IgM 149 mg/dL (50-300)
[2023-10-12 20:48] LABS: SM/Ribonucleoprotein Ab <1.0 NEG AI (<1.0 NEG); Smith Protein <1.0 NEG AI (<1.0 NEG)
[2023-10-12 21:17] LABS: Prot Elec - Albumin 4.6 g/dL (3.8-4.8); Prot Elec - Alpha1 0.3 g/dL (0.2-0.3); Prot Elec - Alpha2 0.8 g/dL (0.5-0.9); Prot Elec - Beta 1 0.5 g/dL (0.4-0.6); Prot Elec - Beta 2 0.6 g/dL (0.2-0.5); Prot Elec - Gamma 1.1 g/dL (0.8-1.7); Prot Elec - Total Protein 7.8 g/dL (6.1-8.1)
[2023-10-13 07:49] LABS: TS Negative Control Passed; TS Panel A 0; TS Panel B 0; TS Positive Control Passed; TSpotTB Negative (Negative)
[2023-10-17 11:24] LABS: Anti Nuclear Antibody Screen NEGATIVE (NEGATIVE)
== END 2023-10-10 13:29 | disposition home or self-care (01) ==
LOC: HO.LAB 13:28
PROVIDERS: PCP Internal Medicine; Visit Provider Nurse Practitioner Family
DX: Z11.1 Encounter for screening for respiratory tuberculosis (principal); E11.65 Type 2 diabetes mellitus with hyperglycemia; E78.00 Pure hypercholesterolemia, unspecified; M75.21 Bicipital tendinitis, right shoulder; M25.461 Effusion, right knee; M25.462 Effusion, left knee
CPT/HCPCS: 36415; 80053; 80061; 82043; 82306; 82550; 82570; 82607; 82746; 82784; 84165; 84439; 84443; 84550; 85025; 85652; 86038; 86140; 86235; 86334; 86481; 86704; 86706; 86709; 86803; 87340

== ENCOUNTER 2024-01-01 13:56 | Outpatient (AMB) | payer OTHER, SELFPAY ==
[2024-01-01 14:02] VITALS: BP 116/82; PULSE 94; O2SAT 98; BMI 29.7
--- NOTE | 2024-01-01 14:02 | A.OFFPC_ITS ---
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 Last seen in 10/10/2023 patient's mammogram is due patient also has a diagnosis of fibromyalgia being followed up by Rheumatology has had corticosteroid injections in the knees 05/11/2023 takes Cymbalta and gabapentin. 6 months of havint L breast pain 6 oclock position. As for the asthma patient uses the albuterol regularly but has not been using the controller on a regular basis. Discussed the use of the inhalers controller as well as rescue and will add montelukast to help with asthma. [facility] Medical History (Updated 01/01/24 @ 15:25 by Susana Barber MD) Swelling of both knees Generalized anxiety disorder Type 2 diabetes mellitus with hyperglycemia Vitamin D deficiency Renal calculi Hypercholesterolemia Migraine GERD (gastroesophageal reflux disease) Lumbar spondylosis Hemorrhoid Surgical History Carpal tunnel syndrome on right Hx of tubal ligation H/O hemorrhoidectomy History of esophagogastroduodenoscopy (EGD) Family History Maternal Aunt History of breast cancer Father Colon cancer Heart attack Brother Colon cancer Heart attack Social History Housing: Apartment Alcohol intake: never Patient Tobacco Use Status: Never used Tobacco e-Cigarette/Vaping Use: Never Used Second Hand Smoke Exposure: Yes service: No Current occupational status: unemployed Current occupational exposures/hazards: No Sexual orientation: Straight/Heterosexual Cognitive needs: No Hearing needs: No Vision needs: Yes Questionnaire Thrive Questionnaire Date Thrive assessed: 10/01/23 JOAN-7 AMB Questionnaire JOAN-7 Date JOAN - 7 assessed: 10/01/23 Source: Developed by Drs. Woodrow Vera, Noemi Carrera, Simba Urias and colleagues, with an educational benoit from [employer]. Physical exam (Primary Care) Vital Signs: Last Vital Signs Pulse 94 01/01/24 14:02 BP 116/82 01/01/24 14:02 Pulse Ox 98 01/01/24 14:02 Oxygen Delivery Method Room Air 01/01/24 14:02 BMI result Body Mass Index 29.7 Tobacco/Smoking Status: Tobacco use Status Tobacco use date assessed 10/01/23 01/01/24 14:06 Patient Tobacco Use Status Never used Tobacco 01/01/24 14:06 e-Cigarette/Vaping Use Never Used 01/01/24 14:06 Thrive Assessment: Date of Thrive Assessment Date Thrive assessed 10/01/23 01/01/24 14:06 Const General: alert; No acute distress Eyes Conjunctivae: conjunctivae normal Chest Other: tender on the 6 oclock position, no mass felt Resp Auscultation: clear to auscultation bilaterally Cardio Rate: regular rate Rhythm: regular rhythm GI Inspection: Yes normal to inspection Extrem General: Yes normal to inspection and No edema Results AMB Hemoglobin A1c AMB Hemoglobin A1c 6.1 % Last Edit by Noemi Shore CMA on 01/01/24 14 :39 Results Reviewed Results Reviewed: Laboratory Last Values Hgb A1c (Clinic) 6.1 % (4.0-6.0) H 01/01/24 14:38 Assessment and Plan Assessment & Plan (1) Type 2 diabetes mellitus with hyperglycemia: Comment: Dr. Gamino Code(s): E11.65 - Type 2 diabetes mellitus with hyperglycemia Plan: Decrease the amount of carbohydrate intake, pasta, bread, rice and potatoes are all sugar and that is aside from all the sweet stuff, remember that fruits are good but they are Sweet also. Hemoglobin A1c goal of less than 6.5 on metformin 500 mg once a day (2) Hypercholesterolemia: Code(s): E78.00 - Pure hypercholesterolemia, unspecified Plan: Avoid fried foods, chicken skin, eggs, butter margarine, pastries and meat. Be it pork or beef they have a lot of cholesterol LDL goal of less than 100 and triglyceride of less than 150 placed on simvastatin 10 mg once a day. Patient i s reminded that there is a request for blood work for cholesterol (3) GERD (gastroesophageal reflux disease): Code(s): K21.9 - Gastro-esophageal reflux disease without esophagitis Plan: Avoid the foods that causes that usually spicy foods, tomato products, juices, coffee, soda and foods that your sensitive to. After eating do not lie down, allow 3-4 hours before in lie down. And keep the head of bed above 30 degrees to avoid the acid from going up. (4) Asthma: Code(s): J45.909 - Unspecified asthma, uncomplicated Plan: Patient on Symbicort and albuterol (5) Generalized anxiety disorder: Comment: decline counselling 10/2021 from [facility] Code(s): F41.1 - Generalized anxiety disorder Plan: Continue with amitriptyline and duloxetine (6) Osteoarthritis of knees, bilateral: Code(s): M17.0 - Bilateral primary osteoarthritis of knee Qualifiers: Osteoarthritis type: primary Qualified Code(s): M17.0 - Bilateral primary osteoarthritis of knee Plan: Keep active lose the weight (7) Colon cancer screening: Code(s): Z12.11 - Encounter for screening for malignant neoplasm of colon (8) Pain of left breast: Code(s): N64.4 - Mastodynia Plan: Mammogram and ultrasound requested Orders: Orders XR chest 2V Today J45.909 - Unspecified asthma, uncomplicated AMB Hemoglobin A1c Today Z13.9 - Encounter for screening, unspecified MM tomosynthesis diagnostic BI Today N64.4 - Mastodynia US breast LT limited Today N64.4 - Mastodynia Referrals Ophthalmology Referral E11.65 - Type 2 diabetes mellitus with hyperglycemia Medications: Discontinued prednisone Discontinued Reason: Change Referral Type 3 tablets per day x 7 days 2 tablets per day x 7 days 1 tablet per day x 7 days 42 tabs 0RF M25.461 - Effusion, right knee, M25.462 - Effusion, left knee Coding Level of Care Code Est Pt Level 4 (16110) Complex EM visit Add On G2211 Diagnoses Type 2 diabetes mellitus with hyperglycemia E11.65 Hypercholesterolemia E78.00 GERD (gastroesophageal reflux disease) K21.9 Asthma J45.909 Generalized anxiety disorder F41.1 Primary osteoarthritis of both knees M17.0 Osteoarthritis type: primary Colon cancer screening Z12.11 Pain of left breast N64.4
== END 2024-01-01 15:37 | disposition home or self-care (01) ==
PROVIDERS: PCP Internal Medicine; Visit Provider Internal Medicine
DX: E11.65 Type 2 diabetes mellitus with hyperglycemia (principal); E78.00 Pure hypercholesterolemia, unspecified; K21.9 Gastro-esophageal reflux disease without esophagitis; J45.909 Unspecified asthma, uncomplicated; F41.1 Generalized anxiety disorder; M17.0 Bilateral primary osteoarthritis of knee; Z12.11 Encounter for screening for malignant neoplasm of colon; N64.4 Mastodynia
CPT/HCPCS: 83036; 99214; G2211

== ENCOUNTER 2024-01-31 13:06 | Outpatient (REF) | payer OTHER, SELFPAY ==
--- NOTE | ~2024-01-31 | US_ITS ---
EXAMINATION: MM DIAGNOSTIC DIGITAL BREAST TOMOSYNTHESIS, BILATERAL US BREAST LIMITED, LEFT MAMMOGRAPHY: CLINICAL INFORMATION: 59-year-old female complaining of left breast pain upper outer quadrant, anterior left breast. Order states 6:00 position left breast. COMPARISON: Mammography: 09/30/2021, 05/07/2017, 02/29/2016, 10/16/2013 TECHNIQUE: Digital breast tomosynthesis is performed in both the craniocaudal and mediolateral oblique views along with computer-aided detection (CAD). Synthesized 2D images are generated from the tomosynthesis. FINDINGS: There are scattered areas of fibroglandular density (ACR BI-RADS breast composition Category b). There are no suspicious masses, suspicious grouped calcifications, or areas of architectural distortion in either breast. The parenchymal pattern is stable from prior exams. There is no skin or axillary abnormality. Region of breast pain upper outer quadrant anterior left breast, or 6:00 axis, demonstrates no mammographic correlate. ULTRASOUND: CLINICAL INFORMATION: As above. COMPARISON: None TECHNIQUE: Targeted sonographic evaluation was performed using a high frequency linear transducer. Selected archived documentation. FINDINGS: LEFT BREAST: There is scattered fibroglandular tissue. No suspicious mass is seen. There is no pathologic acoustic shadowing. There is no cystic abnormality. There is no sonographic abnormality in the upper outer quadrant left breast or 6:00 axis left breast to correlate with the region of breast pain. US/US breast LT limited mamm only IMPRESSION: There are no findings suspicious for malignancy. Left breast area of pain demonstrates no sonographic or mammographic correlate. Recommend clinical management. OVERALL ASSESSMENT: Mammography: BI-RADS 1 - Negative Ultrasound: BI-RADS 1 - Negative RECOMMENDATION: 1. Patient should be managed based on the clinical impression. 2. Otherwise, routine annual screening mammography. Results were provided to the patient at time of visit by the technologist. This patient's information was entered into a reminder system with a target due date for their next mammogram.
== END 2024-01-31 13:07 | disposition home or self-care (01) ==
LOC: HO.MAMMO 13:06
PROVIDERS: PCP Internal Medicine; Visit Provider Internal Medicine
DX: N64.4 Mastodynia (principal)
CPT/HCPCS: 76642; 77062; 77066

== ENCOUNTER → 2024-01-31 13:30 | Outpatient (BNV) | payer OTHER, SELFPAY | PROVIDERS: PCP Internal Medicine; Visit Provider Radiology Diagnostic Radiology | DX: N64.4 Mastodynia (principal) | CPT/HCPCS: 76642; 77062; 77066 ==

== ENCOUNTER 2024-01-31 14:48 | Outpatient (REF) | payer OTHER, SELFPAY ==
--- NOTE | ~2024-01-31 | XR_ITS ---
EXAMINATION: XR CHEST CLINICAL INFORMATION: Unspecified asthma. COMPARISON: 06/05/2022. TECHNIQUE: 2 views of the chest were obtained. FINDINGS: There is no gross pneumothorax. Dextroscoliosis of the thoracic spine with multilevel degenerative changes. Heart size is normal. Persistent minimal linear right bibasilar opacities characteristic of subsegmental atelectasis/scar. No pleural effusion. No focal consolidation. XR/XR chest 2V IMPRESSION: Persistent minimal linear right bibasilar opacities characteristic of subsegmental atelectasis/scar.
[2024-01-31 15:09] LABS: MANUAL DIFF FLAG NO
[2024-01-31 16:19] LABS: Basophils Percent Auto 0.3 % (0-2); Eosinophils Absolute Auto 0.2 X10*3/uL (0.0-0.4); Eosinophils Percent Auto 1.5 % (0-4); Hematocrit 39.4 % (37.0-47.0); Hemoglobin 12.9 g/dl (12.0-16.0); Imm Gran Abs Auto 0.07 X10*3/uL (0.00-0.03); Imm Gran Pct Auto 0.6 % (0.0-0.4); Lymphocytes Percent Auto 34.6 % (20-40); Mean Corpuscular HGB Conc 32.7 g/dl (31.0-35.0); Mean Corpuscular Hemoglobin 30.1 pg (27.0-33.0); Mean Corpuscular Volume 92.1 fL (80.0-98.0); Mean Platelet Volume 9.9 fL (9.4-12.3); Monocytes Absolute Auto 0.8 X10*3/uL (0.1-1.2); Monocytes Percent Auto 7.2 % (2-11); Neutrophils Absolute Auto 6.4 x10*3/uL (2.0-8.3); Neutrophils Percent Auto 55.8 % (45-73); Platelet Count 309 X10*3/uL (160-400); Red Blood Count 4.28 X10*6/uL (4.20-5.50); Red Cell Distribution Width 12.5 % (11.0-16.0); White Blood Count 11.5 X10*3/uL (4.8-10.8)
[2024-01-31 16:29] LABS: Alanine Aminotransferase 17 U/L (0-31); Albumin Level 4.1 g/dL (3.5-5.0); Alkaline Phosphatase 86 U/L (39-117); Anion Gap 11 (12-20); Aspartate Amino Transferase 17 U/L (5-31); Bilirubin Total 0.2 mg/dL (0.0-1.0); Blood Urea Nitrogen 15 mg/dL (9-16); Calcium 9.6 mg/dL (8.4-10.2); Carbon Dioxide 30 mmol/L (22-29); Chloride 106 mmol/L (96-108); Cholesterol 234 mg/dL (<200); Estimated Glomerular Filt Rate > 60; Glucose Random 105 mg/dL (60-115); HDL Cholesterol 41 mg/dL (>40); LDL Cholesterol Calculated 163 mg/dL (<100); Potassium 4.8 mmol/L (3.3-5.1); Sodium 142 mmol/L (135-145); Total Protein 7.5 g/dL (6.5-8.0); Triglycerides 150 mg/dL (<150)
[2024-01-31 17:27] LABS: Creatinine Urine 54.79 mg/dL
== END 2024-01-31 14:49 | disposition home or self-care (01) ==
LOC: HO.LAB 14:48
PROVIDERS: PCP Internal Medicine; Visit Provider Internal Medicine
DX: J45.909 Unspecified asthma, uncomplicated (principal); E11.65 Type 2 diabetes mellitus with hyperglycemia; E78.00 Pure hypercholesterolemia, unspecified
CPT/HCPCS: 36415; 71046; 80053; 80061; 82570; 85025

== ENCOUNTER 2024-04-08 13:20 | Outpatient (AMB) | payer OTHER, SELFPAY ==
--- NOTE | 2024-04-08 13:21 | A.OFFPC_ITS ---
Intake Visit Reasons: + Covid, requesting medicaton Vehicle Detailer Required: No Accompanied by: Self / Same As Patient Allergies aspirin [Aspirin] Allergy (Severe, Verified 04/08/24 13:21) SWELLING/RASH, Red bumps on face, redness Penicillins Allergy (Intermediate, Verified 04/08/24 13:21) RASH Tobacco use date assessed: 10/01/23 Dental Screening Dental Screen Date: 10/01/23 HPI + Covid, requesting medicaton HPI Details 59-year-old overweight female with diabe josh mellitus hypercholesterolemia GERD asthma generalized anxiety disorder calling in for an acute problem. This is through Telehealth. fever, myalgia 4 days ago sore throat, CLEARY, cough test sunday and yesay [facility] Medical History (Updated 04/08/24 @ 13:27 by Susana Barber MD) Swelling of both knees Generalized anxiety disorder Type 2 diabetes mellitus with hyperglycemia Vitamin D deficiency Renal calculi Hypercholesterolemia Migraine GERD (gastroesophageal reflux disease) Lumbar spondylosis Hemorrhoid Surgical History Carpal tunnel syndrome on right Hx of tubal ligation H/O hemorrhoidectomy History of esophagogastroduodenoscopy (EGD) Family History Maternal Aunt History of breast cancer Father Colon cancer Heart attack Brother Colon cancer Heart attack Social History Housing: Apartment Alcohol intake: never Patient Tobacco Use Status: Never used Tobacco Tobacco use type: Cigarette e-Cigarette/Vaping Use: Never Used Second Hand Smoke Exposure: Yes service: No Current occupational status: unemployed Current occupational exposures/hazards: No Sexual orientation: Straight/Heterosexual Cognitive needs: No Hearing needs: No Vision needs: Yes Questionnaire Thrive Questionnaire Date Thrive assessed: 10/01/23 JOAN-7 AMB Questionnaire JOAN-7 Date JOAN - 7 assessed: 10/01/23 Source: Developed by Drs. Woodrow Vera, Noemi Carrera, Simba Urias and colleagues, with an educational benoit from [employer]. Physical exam (Primary Care) Tobacco/Smoking Status: Tobacco use Status Tobacco use date assessed 10/01/23 04/08/24 13:22 Patient Tobacco Use Status Never used Tobacco 04/08/24 13:22 Tobacco use type Cigarette 04/08/24 13:22 e-Cigarette/Vaping Use Never Used 04/08/24 13:22 Thrive Assessment: Date of Thrive Assessment Date Thrive assessed 10/01/23 04/08/24 13:22 Telehealth Telehealth Telehealth Platform: Telephone Location of provider rendering services: practice address Location of patient: address on file Patient Identification confirmed using: Name, : Yes Telehealth method: video Patient verbally consented to treatment: Yes Patient verbally consented to billing insurance company: Yes Patient informed of any privacy concerns related to visit: Yes Minutes spent on Phone/Video with Pt.: 15 Assessment and Plan Assessment & Plan (1) COVID-19 virus infection: Comment: 11/2021, 04/07/2024 Code(s): U07.1 - COVID-19 Plan: For the sore throat can take Cepacol lozenges, discussed about Delsym to help with dry cough so she can rest and advised to increase oral fluids. Patient also can take Tylenol for chills and fever. Antiviral sent in advised to increase oral fluids. Medications: New nirmatrelvir-ritonavir 300 mg (150 mg x 2)-100 mg (Paxlovid) take TWO 150 mg tablets of nirmatrelvir with ONE 100 mg tablet of ritonavir twice daily for 5 days PO 30 ea 0RF Coding Level of Care Code Tele Est Pt Level 3 (11734) Diagnoses COVID-19 virus infection U07.1
== END 2024-04-08 14:40 | disposition home or self-care (01) ==
PROVIDERS: PCP Internal Medicine; Visit Provider Internal Medicine
DX: U07.1 COVID-19 (principal)

== ENCOUNTER → 2024-04-08 13:20 | Outpatient (BNVA) | payer OTHER, SELFPAY | PROVIDERS: PCP Internal Medicine; Visit Provider Internal Medicine ==

== ENCOUNTER 2024-08-18 11:06 | Outpatient (AMB) | payer MEDICARE, MEDICAID, SELFPAY ==
--- NOTE | 2024-08-18 11:34 | A.OFFPC_ITS ---
Vital Signs 08/18/24 11:35 Height 4 ft 9 in Weight 132 lb 8 oz BMI 28.7 BP 110/70 Blood Pressure Location Lt brachial Position Sitting Pulse 85 Pulse Source Pulse Oximeter Temp 97.5 F Temp Source Oral Pulse Oximetry (%) 99 Oxygen Delivery Method Room Air Intake Visit Reasons: cholesterol and asthma Intake Note: Patient is here to follow up on Cholesterol and Asthma. Fitness Club Manager Required: No Fermentation Manager: Not Required per policy Accompanied by: Self / Same As Patient Allergies aspirin [Aspirin] Allergy (Severe, Verified 08/18/24 11:35) SWELLING/RASH, Red bumps on face, redness Penicillins Allergy (Intermediate, Verified 08/18/24 11:35) RASH Medication List - Last Reconciled 08/18/24 by Roseann Hendrix PA-C albuterol sulfate 2.5 mg (3 mL) inhalation Q4-6H PRN albuterol sulfate 90 mcg/actuation 2 puffs inhalation Q6H PRN amitriptyline 10 mg PO BEDTIME budesonide-formoterol 160-4.5 mcg/actuation (Symbicort) 2 puffs inhalation BID 30 days duloxetine (Cymbalta) 60 mg PO DAILY gabapentin 400 mg PO BEDTIME meclizine 25 mg PO BID PRN metformin 500 mg PO DAILY montelukast (Singulair) 10 mg PO BEDTIME [Nebulizer As directed] pantoprazole 40 mg PO DAILY simvastatin 10 mg PO BEDTIME sumatriptan succinate (Imitrex) 100 mg PO .QD PRN Tobacco use date assessed: 08/18/24 Dental Screening Dental Screen Date: 08/18/24 Did you have a dental visit in the last 12 months?: No Did you have a dental problem in the last 6 months where you did not have access to dental care?: No Was dental information given to patient?: Patient has dentist HPI cholesterol and asthma HPI Details 59-year-old female with past medical his tory of diabetes mellitus, hypercholesterolemia, GERD, asthma, generalized anxiety disorder last seen 03/[address] Barber coming in for follow up. Patient tells us today her breathing has been okay she does use her albuterol frequently and often daily and does wake up in the middle of the night with coughing fits. She continues to have diffuse body aches related to her fibromyalgia and often use ibuprofen for this concern. She has no other concerns today. [facility] Medical History Swelling of both knees Generalized anxiety disorder Type 2 diabetes mellitus with hyperglycemia Vitamin D deficiency Renal calculi Hypercholesterolemia Migraine GERD (gastroesophageal reflux disease) Lumbar spondylosis Hemorrhoid Surgical History Carpal tunnel syndrome on right Hx of tubal ligation H/O hemorrhoidectomy History of esophagogastroduodenoscopy (EGD) Family History Maternal Aunt History of breast cancer Father Colon cancer Heart attack Brother Colon cancer Heart attack Social History Housing: Apartment Alcohol intake: never Patient Tobacco Use Status: Never used Tobacco Tobacco use type: Cigarette e-Cigarette/Vaping Use: Never Used Second Hand Smoke Exposure: Yes service: No Current occupational status: unemployed Current occupational exposures/hazards: No Sexual orientation: Straight/Heterosexual Cognitive needs: No Hearing needs: No Vision needs: Yes Questionnaire PHQ-9 Over the last 2 weeks, how often have you been bothered by any of the following problems? 1. Little interest or pleasure in doing things: nearly every day 2. Feeling down, depressed, or hopeless: nearly every day 3. Trouble falling or staying asleep, or sleeping too much: nearly every day 4. Feeling tired or having little energy: nearly every day 5. Poor appetite or overeating: several days 6. Feeling bad about yourself - or that you are a failure or have let yourself or your family down: several days 7. Trouble concentrating on things, such as reading the newspaper or watching television: nearly every day 8. Moving or speaking so slowly that other people could have noticed. Or the opposite - being so fidgety or restless that you have been moving around a lot more than usual: several days 9. Thoughts that you would be better off or of hurting yourself in some way: several days Total score: 19 Depression Screening Interpretation: Positive Depression Screening Done: Yes Source: Developed by Drs. Woodrow L. ChuyNoemi howe Kurt Kroenke and colleagues, with an educational benoit from [employer]. Thrive Questionnaire Date Thrive assessed: 08/18/24 I am a: Patient What is your living situation today?: I have a steady place to live Within the past 12 months, did the food you bought not last and you didn't have the money to get more?: Never true Within the past 12 months, did you worry whether your food would run out before you got money to buy more?: Never true Do you have trouble paying for medicines?: No Do you have trouble getting transportation to medical appointments?: No Do you have trouble paying your heating and electricity bill?: No Do you have trouble taking care of your child, family member or friend?: No Do you have trouble with day-to-day activities such as bathing, preparing meals, shopping, managing finances, etc.?: No Are you currently unemployed and looking for a job?: No Are you interested in more education?: No Please select the resources that you would like help with: None Currently or been in a relationship where the following occur: No concerns reported THRIVE Score: 0 AUDIT C Alcohol Use Questionnaire (AUDIT-C) 1. How often do you have a drink containing alcohol?: Never Total Score: 0 JOAN-7 AMB Questionnaire JOAN-7 Date JOAN - 7 assessed: 08/18/24 Feeling nervous, anxious, or on edge: 1 = Several days Not being able to stop or control worryin = Several days Worrying too much about different things: 1 = Several days Trouble relaxin = Several days Being so restless that it is hard to sit still: 1 = Several days Becoming easily annoyed or irritable: 1 = Several days Feeling afraid as if something awful might happen: 1 = Several days Total JOAN-7 score (0-4 normal; 5-9 mild; 10-14 moderate; 15-21 severe): 7 Source: Developed by Drs. Woodrow Vera, Simba Faulkner and colleagues, with an educational benoit from [employer]. Review of Systems Const Denies body aches, Denies chills, Denies fever(s), Denies headache(s) and Denies poor appetite Eyes Reports no additional complaints ENT Denies dysphagia, Denies dizziness, Denies headache(s) and Denies odynophagia Card Denies chest pain, Denies syncope, Denies edema, Denies irregular heart rhythm, Denies lightheadedness and Denies dyspnea Resp Reports cough (Nocturnal) and Denies dyspnea GI Denies abdominal pain, Denies constipation, Denies dysphagia, Denies diarrhea, Denies nausea, Denies odynophagia and Denies vomiting Reports no additional complaints Musc Reports no additional complaints and Denies abnormal gait Skin/Breast Reports system reviewed and no additional complaints, except as documented Neuro Denies abnormal gait, Denies dizziness, Denies syncope and Denies headache(s) Psych Reports no additional complaints Physical exam (Primary Care) Vital Signs: Last Vital Signs Temp 97.5 F 08/18/24 11:35 Pulse 85 08/18/24 11:35 BP 110/70 08/18/24 11:35 Pulse Ox 99 08/18/24 11:35 Oxygen Delivery Method Room Air 08/18/24 11:35 BMI result Body Mass Index 28.7 Tobacco/Smoking Status: Tobacco use Status Tobacco use date assessed 08/18/24 08/18/24 11:42 Patient Tobacco Use Status Never used Tobacco 08/18/24 11:42 Tobacco use type Cigarette 08/18/24 11:42 e-Cigarette/Vaping Use Never Used 08/18/24 11:42 PHQ-9: PHQ-9 Score PHQ-9: Total score 19 08/18/24 11:48 Depression Screening Interpretation: Positive Thrive Assessment: Date of Thrive Assessment Date Thrive assessed 08/18/24 08/18/24 11:42 Currently or been in a relationship where the following occur: No concerns reported Const General: cooperative, healthy appearing, comfortable and no acute distress Orientation/consciousness: patient oriented x3 [facility] Head: Yes normocephalic Ears: hearing grossly normal bilaterally General nose exam: Normal external nose present Eyes General: appearance normal, both eyes and all related structures Conjunctivae: conjunctivae normal Neck Neck: Yes full ROM and Yes no lymphadenopathy Resp Effort & Inspection: normal respiratory effort Auscultation: clear to auscultation bilaterally, no crackles, no rales, no rhonchi and no wheezes Cardio Rate: regular rate Rhythm: regular rhythm Skin General skin exam: no rashes or lesions noted Neuro General: patient oriented x3 Gait exam (Neuro): Normal gait present Extrem General: Yes normal to inspection, Yes full ROM and No edema Psych Affect: normal affect Attitude: cooperative Insight: Good insight present (Psych) Judgement: Good judgement present (Psych) Results AMB Hemoglobin A1c AMB Hemoglobin A1c 6.0 % Last Edit by BALBIR Cristobal on 08/18/24 12:0 7 Coding Level of Care Code Est Pt Level 4 (94763) Diagnoses Type 2 diabetes mellitus with hyperglycemia E11.65 Hypercholesterolemia E78.00 GERD (gastroesophageal reflux disease) K21.9 Asthma J45.909 Fibromyalgia M79.7 Numbness and tingling in right hand R20.0; R20.2 Assessment & Plan Assessment & Plan (1) Type 2 diabetes mellitus with hyperglycemia: Comment: Dr. Gamino Code(s): E11.65 - Type 2 diabetes mellitus with hyperglycemia Category: Medical Plan: Decrease the amount of carbohydrates such as pasta, bread, rice, and potatoes and limit the amount of sweets. Although fruits are generally healthy they should be eaten in moderation as they are still high in sugar. Hemoglobin A1c goal of less than 7%. A1c 6.0% today continue on metformin. (2) Hypercholesterolemia: Code(s): E78.00 - Pure hypercholesterolemia, unspecified Category: Medical Plan: Avoid foods that are high in cholesterol such as red meat, fried foods, eggs and baked goods. Triglyceride goal of less than 150 and LDL goal of less than 100. Continue on simvastatin 10 mg. Ordered for repeat cholesterol labs as the last blood work was from January 2024. Advised patient if cholesterol is elevated once again we will plan to increase simvastatin. (3) GERD (gastroesophageal reflux disease): Code(s): K21.9 - Gastro-esophageal reflux disease without esophagitis Category: Medical Plan: Avoid trigger foods such as citrus, tomato products, soda, caffeine, spicy foods and other foods that may be irritating to your stomach. Avoid laying flat 3-4 hours after eating and elevate the head of the bed 30 degrees to prevent acid from moving into the esophagus. Continue on pantoprazole 40. (4) Asthma: Code(s): J45.909 - Unspecified asthma, uncomplicated Category: Medical Plan: Has been not currently controlled on Symbicort b.i.d., albuterol as needed and montelukast. Patient is on max dose of these therapies and still does not feel breathing is well controlled. Referral placed to pulmonology. Also added in allergy medication to be taken daily (5) Fibromyalgia: Code(s): M79.7 - Fibromyalgia Category: Medical Plan: Patient complaining of continued diffuse pain from fibromyalgia currently on gabapentin at nighttime. She continues to have pain throughout the day and would like medication to be taken throughout the day. We will send prescription for meloxicam 7.5 mg to be taken as needed for pain advised not to take with ibuprofen. She does have a history of aspirin allergy but takes ibuprofen without issue. (6) Numbness and tingling in right hand: Code(s): R20.0 - Anesthesia of skin; R20.2 - Paresthesia of skin Category: Medical Plan: Patient complaining of ringing hand numbness and tingling does have a history of carpal tunnel release in the left hand and was previously diagnosed with carpal tunnel in the right hand many years ago. Ordered for repeat EMG and can consider referral to Orthopedics Plan This note was constructed using voice recognition software. While every effort has been made to ensure accuracy and hip hop artist, still areas may have been included sometimes these areas may affect the content or meeting of the given symptoms. Total time spent caring for the patient today was 20 minutes. This includes time spent before the visit reviewing the chart, time spent during the visit, and time spent after the visit and documentation. Orders: Orders NE electromyogram (EMG) Today R20.0 - Anesthesia of skin, R20.2 - Paresthesia of skin Lipid Panel Today E78.00 - Pure hypercholesterolemia, unspecified AMB Hemoglobin A1c Today Z13.9 - Encounter for screening, unspecified Referrals Pulmonology Referral J45.909 - Unspecified asthma, uncomplicated Medications: New meloxicam 7.5 mg PO DAILY PRN 30 tabs 0RF pain fexofenadine (Allergy Relief (fexofenadine)) 180 mg PO DAILY 90 tabs 0RF Refilled albuterol sulfate 90 mcg/actuation 2 puffs inhalation Q6H PRN 8.5 grams 0RF bronchospasm J45.909 - Unspecified asthma, uncomplicated
[2024-08-18 11:35] VITALS: BP 110/70; PULSE 85; TEMP 36.4; O2SAT 99; BMI 28.7
== END 2024-08-18 12:13 | disposition home or self-care (01) ==
PROVIDERS: PCP Internal Medicine
DX: E11.65 Type 2 diabetes mellitus with hyperglycemia (principal); E78.00 Pure hypercholesterolemia, unspecified; K21.9 Gastro-esophageal reflux disease without esophagitis; J45.909 Unspecified asthma, uncomplicated; M79.7 Fibromyalgia; R20.0 Anesthesia of skin; R20.2 Paresthesia of skin; Z13.9 Encounter for screening, unspecified

== ENCOUNTER → 2024-08-18 11:06 | Outpatient (BNVA) | payer MEDICARE, MEDICAID, SELFPAY | PROVIDERS: PCP Internal Medicine | DX: E11.65 Type 2 diabetes mellitus with hyperglycemia (principal); E78.00 Pure hypercholesterolemia, unspecified; K21.9 Gastro-esophageal reflux disease without esophagitis; J45.909 Unspecified asthma, uncomplicated; M79.7 Fibromyalgia; R20.0 Anesthesia of skin; R20.2 Paresthesia of skin | CPT/HCPCS: 83036; 99212 ==

== ENCOUNTER 2024-08-26 05:51 | Outpatient (REF) | payer MEDICARE, MEDICAID, SELFPAY | END 2024-08-26 05:52 | disposition home or self-care (01) | LOC: HO.NEURO 05:51 | PROVIDERS: PCP Internal Medicine | DX: S05.01XA Injury of conjunctiva and corneal abrasion without foreign body, right eye, initial encounter (principal) ==

== ENCOUNTER 2024-09-23 10:16 | Outpatient (REF) | payer MEDICARE, MEDICAID, SELFPAY ==
--- NOTE | 2024-09-23 10:18 | EMG_ITS ---
Right median and ulnar motor and sensory studies were performed. Right radial sensory study was performed and paraspinal muscles were tested with a needle. 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 MD BILL Recinos/RAÚL / [id number]
== END 2024-09-23 10:17 | disposition home or self-care (01) ==
LOC: HO.NEURO 10:16
PROVIDERS: PCP Internal Medicine
DX: R20.0 Anesthesia of skin (principal); R20.2 Paresthesia of skin
CPT/HCPCS: 95886; 95909

== ENCOUNTER 2024-09-23 14:28 | Outpatient (AMB) | payer MEDICARE, MEDICAID, SELFPAY ==
--- NOTE | 2024-09-23 14:31 | MHC.OFFVIS ---
Vital Signs 09/23/24 14:36 Height 4 ft 9 in Weight 128 lb 15.527 oz BMI 27.9 BP 120/72 Blood Pressure Location Lt brachial Position Sitting Pulse 90 Pulse Source Pulse Oximeter Pulse Oximetry (%) 98 Oxygen Delivery Method Room Air Intake Visit Reasons: OA/FM Intake Note: Patient presents for OA/FM. Allergies aspirin [Aspirin] Allergy (Severe, Verified 09/23/24 14:35) SWELLING/RASH, Red bumps on face, redness Penicillins Allergy (Intermediate, Verified 09/23/24 14:35) RASH Medication List - Last Reconciled 09/23/24 by Mirella Preston MD albuterol sulfate 2.5 mg (3 mL) inhalation Q4-6H PRN albuterol sulfate 90 mcg/actuation 2 puffs inhalation Q6H PRN amitriptyline 10 mg PO BEDTIME budesonide-formoterol 160-4.5 mcg/actuation (Symbicort) 2 puffs inhalation BID 30 days duloxetine (Cymbalta) 60 mg PO DAILY erythromycin 0.5 inches ophthalmic-Right QID fexofenadine (Allergy Relief (fexofenadine)) 180 mg PO DAILY gabapentin 400 mg PO BEDTIME meclizine 25 mg PO BID PRN meloxicam 7.5 mg PO DAILY PRN metformin 500 mg PO DAILY montelukast (Singulair) 10 mg PO BEDTIME [Nebulizer As directed] pantoprazole 40 mg PO DAILY simvastatin 10 mg PO BEDTIME sumatriptan succinate (Imitrex) 100 mg PO .QD PRN HPI Comments Details: Patient is a 59-year-old female with generalized anxiety disorder, hyperlipidemia, diabetes, asthma, GERD, polyarticular osteoarthritis (bilateral knees) and fibromyalgia here today for follow up Interval History: Patient last seen 10/09/2023 with Emy Neal. At that time she requested bilateral steroid injection of the knees. She continued to complain of pain involving hands, shoulder, lower back glucometers x-ray feet. She was given a short course of prednisone to see if this would help improve her symptoms. Patient reports that the prednisone helped a bit but did not remove all of her symptoms. At times she does get recurrent swelling of her knees but this is self-limited. Denies prolonged morning stiffness. Today she is complaining of right shoulder pain Rheumatologic History: Fibromyalgia Osteoarthritis Current Rheumatology Medication(s): Gabapentin 400 mg at bedtime Amitriptyline 10 mg bedtime (prescribed by other providers) Duloxetine 60mg daily (prescribed by other providers) Meloxicam 7.5mg (prescribed by other providers) [facility] Medical History (Updated 09/23/24 @ 16:10 by Mirella Preston MD) Generalized anxiety disorder Type 2 diabetes mellitus with hyperglycemia Vitamin D deficiency Renal calculi Hypercholesterolemia Migraine GERD (gastroesophageal reflux disease) Lumbar spondylosis Hemorrhoid Surgical History Carpal tunnel syndrome on right Hx of tubal ligation H/O hemorrhoidectomy History of esophagogastroduodenoscopy (EGD) Family History Maternal Aunt History of breast cancer Father Colon cancer Heart attack Brother Colon cancer Heart attack Social History Housing: Apartment Alcohol intake: never Patient Tobacco Use Status: Never used Tobacco Tobacco use type: Cigarette e-Cigarette/Vaping Use: Never Used Second Hand Smoke Exposure: Yes service: No Current occupational status: unemployed Current occupational exposures/hazards: No Sexual orientation: Straight/Heterosexual Cognitive needs: No Hearing needs: No Vision needs: Yes Review of Systems Const Details: Review of Systems Constitutional: Denies fever, chills, weight loss ENT: Denies vision changes, eye pain or eye redness, dental caries, dry mouth GI: Denies nausea, vomiting, diarrhea, abdominal pain, change in BM Pulm: Denies SOB, CEJA, hemoptysis, wheezing Cards: Denies chest pain, palpitations Skin: Denies Raynaud's, rash, nail changes, photosensitivity, DEDICATED DRIVER: Denies headaches, weakness, paresthesias, recurrent falls MSK: as per HPI All other systems reviewed and are unremarkable except noted above Physical Exam Vital Signs: Last Vital Signs Pulse 90 09/23/24 14:36 BP 120/72 09/23/24 14:36 Pulse Ox 98 09/23/24 14:36 Oxygen Delivery Method Room Air 09/23/24 14:36 BMI result Body Mass Index 27.9 Vital signs reviewed Physical Examination CONSTITUITIONAL Patient alert and cooperative. Well appearing and in no apparent painful distress HEENT Conjunctiva and sclera clear. ?Pupils equal round and reactive to light. ?No lymphadenopathy. ? CHEST/RESPIRATORY SYSTEM Normal respiratory effort and able to speak in complete sentences. ?Clear to auscultation bilaterally. ?No crackles, rales, rhonchi, wheezes heard. CARDIAC SYSTEM Regular rate and rhythm. ?S1 and S2 heard no murmurs. ?Radial pulses intact bilaterally MSK Hands: ?Good district director strength bilaterally. No deformities noted. ?No synovitis noted to the MCPs, PIPs or DIPs. ?Prominent Heberden's nodes noted throughout. Wrists: ?Full range of motion at the wrists without pain. ?No tenderness to palpation or synovitis noted to the wrists. Elbows: Full range of motion without pain. No tenderness, weakness, swelling, increased warmth or erythema. Shoulders: Full range of motion without pain. Tenderness to palpation of the right subacromial bursa Hips: Full range of motion without pain. Hip bursa: No tenderness to palpation Knees: ?Full range of motion. ?No tenderness, swelling, increased warmth or erythema.?No effusion or crepitations Ankles: Full range of motion. ?No tenderness, swelling, increased warmth or erythema.? Feet: ?Negative squeeze test. ?No tenderness to palpation or swelling of the MTPs. Tender points:?No tenderness to palpation of the bilateral trapezius, supraspinatus, greater trochanters, anterior costochondral junctions, bilateral gluteal areas, bilateral suboccipital muscle insertions SKIN Skin intact without rashes. Office Procedures AMB Joint Injection/Aspiration Joint Injection/Aspiration Details: Procedure was explained to the patient and consent was obtained. ? The area of interest was identified and confirmed with patient. ?This was subsequently cleaned with chlorhexidine x3. ? The area was then anesthetized using ethyl chloride spray. 40 mg Kenalog with 1 cc 1% lidocaine was injected without issue. ?Minimal to no bleeding. ?Patient tolerated procedure. Primary Site: right shoulder Prep: site was prepped using aseptic technique and ethochloride spray was applied Injected: 40 mg of, Kenalog, with 1 mL of, 1% plain lidocaine and in the subcromial space Approach Used: other Procedure: The patient tolerated the procedure well Coding 70606 - Large joint Procedure code (CPT) selection complete Office Meds lidocaine (PF) 10 mg/mL (1 %) injection solution Performing Provider: Mirella Preston MD Performing Location: [facility] [place] Rheumatology Administered by: Mirella Preston MD on 09/23/24 16:05 Dose Route Admin Location Dispensed Lot Number Expiration Date [facility] [employer] Faculty Member 1 mL Infiltration right subacromial bursa 2 mL [id number] 10/21/26 76199-787-57 [facility] Kenalog 40 mg/mL suspension for injection Performing Provider: Mirella Preston MD Performing Location: [facility] [place] Rheumatology Administered by: Mirella Preston MD on 09/23/24 16:05 Dose Route Admin Location Dispensed Lot Number Expiration Date [facility] [employer] Member 40 mg intrabursal right subacromial bursa 1 mL [id number] 01/20/26 [address]-2 [employer] Results Reviewed Results Reviewed: No recent blood work to review Assessment & Plan Assessment & Plan (1) Fibromyalgia: Code(s): M79.7 - Fibromyalgia Category: Medical Plan: #Fibromyalgia Patient is a 59-year-old female with fibromyalgia. Today her symptoms seem to be overall managed. I recommended increasing gabapentin from 400-600 mg at bedtime see if this helps. Plan - Increase gabapentin to 600mg at night - Continue meloxicam, duloxetine and amitriptline from other providers - RTC 6 months (2) Polyarticular osteoarthritis: Code(s): M15.9 - Polyosteoarthritis, unspecified Plan: #Polyarticular OA Patient with polyarticular osteoarthritis involving her hands, knees and shoulders. Also likely her lower back as well. With respect to her shoulders today she received a right subacromial bursa injection for right subacromial bursitis/glenohumeral osteoarthritis. Recommended physical therapy for patient but she declined today. Plan I spent 20 minutes reviewing the record and labs, taking a history, examining the patient, discussing the treatment plan and documenting in the medical record Orders: Orders AMB Joint Injection/Aspiration Today M75.51 - Bursitis of right shoulder Medications: New Kenalog (triamcinolone acetonide) 40 mg intrabursal ONCE 1 mL 0RF NS M75.51 - Bursitis of right shoulder lidocaine (PF) 1 mL Infiltration ONCE 2 mL 0RF M75.51 - Bursitis of right shoulder Changed From gabapentin 400 mg PO BEDTIME 90 caps 1RF M79.7 - Fibromyalgia To gabapentin 600 mg (2 x 300 mg) PO BEDTIME 90 days 180 caps 1RF M79.7 - Fibromyalgia Coding Level of Care Code Est Pt Level 3 (99888) Diagnoses Fibromyalgia M79.7 Polyarticular osteoarthritis M15.9 CPT Codes Coding - 33745 Large joint: 85252 - Large joint ([id number])
[2024-09-23 14:36] VITALS: BP 120/72; PULSE 90; O2SAT 98; BMI 27.9
== END 2024-09-23 15:11 | disposition home or self-care (01) ==
PROVIDERS: PCP Internal Medicine; Visit Provider Student in an Organized Health Care Education/Training Program
DX: M79.7 Fibromyalgia (principal); M15.9 Polyosteoarthritis, unspecified; M75.51 Bursitis of right shoulder
CPT/HCPCS: 20610; 99213